=== PATIENT | male | born 1990 | race Caucasian/White ===

== ENCOUNTER 2017-04-15 22:57 | Emergency (ER) | payer BC ==
[~2017-04-15] VITALS: Ht 182.9 cm; Wt 138.6 kg
[2017-04-15] MEDS ORDERED: ZYRT10CA PO (23:12)
[2017-04-15] MEDS ORDERED: METH36TA (23:12)
[2017-04-16 01:29] LABS: BASO % 1.3 % (0.0-1.0); EOS % 1.5 % (0.0-3.0); LARGE UNSTAINED CELL % 1.8 % (0.0-4.0); LYMPH % 18.8 % (24.0-44.0); MEAN CORPUSCULAR HGB CONC 35.8 g/dl (32.0-36.5); MEAN CORPUSCULAR VOLUME 86.5 fl (80.0-96.0); MONO % 6.3 % (0.0-5.0); NEUTROPHILS % 70.3 % (36.0-66.0); PLATELET COUNT, AUTOMATED 352 k/mm3 (150-450); RED CELL DISTRIBUTION WIDTH 12.8 % (11.5-14.5); WHITE BLOOD COUNT 7.3 K/mm3 (4.0-10.0)
[2017-04-16 01:30] LABS: BASO # 0.1 K/mm3 (0.0-0.2); EOS # 0.1 K/mm3 (0.0-0.50); LARGE UNSTAINED CELL # 0.1 K/mm3 (0.0-0.4); LYMPH # 1.4 K/mm3 (1.5-6.5); MONO # 0.5 K/mm3 (0.0-0.8); NEUTROPHILS # 5.1 K/mm3 (1.8-7.7)
[2017-04-16 01:44] LABS: ANION GAP 9 MEQ/L (8-16); BLOOD UREA NITROGEN 17 MG/DL (7-18); CALCIUM LEVEL 9.8 MG/DL (8.5-10.1); CARBON DIOXIDE LEVEL 26 MEQ/L (21-32); CHLORIDE LEVEL 104 MEQ/L (98-107); CREATININE FOR GFR 1.09 MG/DL (0.70-1.30); GLOMERULAR FILTRATION RATE > 60.0 (>60); GLUCOSE, FASTING 127 MG/DL (70-105); POTASSIUM SERUM 3.9 MEQ/L (3.5-5.1); SODIUM LEVEL 139 MEQ/L (136-145)
[2017-04-16 02:00] VITALS: BP 144/89
--- NOTE | 2017-04-16 08:26 | ECGEPIP ---
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
--- NOTE | 2017-04-22 15:34 | REP ---
Clinical: Chest pain. Technique: PA and lateral. Comparison: None. Findings: Mediastinum and cardiac silhouette are normal. No focal consolidation, effusion, or pneumothorax. Skeletal structures intact. Impression: No obvious acute cardiopulmonary process. Signed by Thony Thompson MD 04/16/2017 07:09 A
== END 2017-04-16 02:05 | disposition home or self-care (01) ==
LOC: M ED 22:57
DX: R07.89 Other chest pain (principal); F90.9 Attention-deficit hyperactivity disorder, unspecified type; Z79.899 Other long term (current) drug therapy

== ENCOUNTER → 2020-09-12 | Outpatient (CLI) | payer BC ==
[~2020-09-12] MED LIST: METH36TA5; ZYRT10CA PO
--- NOTE | 2020-09-12 08:46 | REP ---
INDICATION: F/U RIGHT SHOULDER. COMPARISON: None. TECHNIQUE: Internal rotation, external rotation, and Y-view of the right shoulder. FINDINGS: Mild cortical irregularity at the distal clavicle likely representing degenerative change and less likely acute injury/nondisplaced fracture. The acromioclavicular joint itself appears intact. The glenohumeral joint is normal. Subacromial space measures 10 mm. No periarticular calcifications or loose bodies are identified. Surrounding soft tissues normal. IMPRESSION: Presumed mild degenerative changes at the acromioclavicular joint. <Electronically signed by Thony Thompson > 09/12/20 [id number]
== END ==
LOC: M SOG 08:15
PROVIDERS: ATTEND Orthopaedic Surgery Sports Medicine
DX: M75.41 Impingement syndrome of right shoulder (principal)

== ENCOUNTER 2021-02-07 20:41 | Emergency (ER) | payer BC ==
[~2021-02-07] VITALS: Ht 182.9 cm; Wt 147.7 kg
[2021-02-07] MEDS ORDERED: ACET-841 PO (20:51)
[2021-02-07] MEDS ORDERED: MORPHINE 2 MG/ML 1ML VIAL (J2270) IV PRN (21:05)
[2021-02-07] MEDS ORDERED: NS 1,000 ML IV ONE (21:05)
[2021-02-07 21:26] LABS: BASO # 0.1 10^3/uL (0.0-0.2); BASO % 0.6 % (0.0-1.0); EOS # 0.1 10^3/uL (0.0-0.5); EOS % 1.5 % (0.0-3.0); HEMATOCRIT 46.1 % (42.0-52.0); HEMOGLOBIN 15.9 g/dl (13.5-17.5); LYMPH # 1.6 10^3/uL (1.5-5.0); MEAN CORPUSCULAR HEMOGLOBIN 30.3 pg (27.0-33.0); MEAN CORPUSCULAR HGB CONC 34.5 g/dl (32.0-36.5); MONO # 0.9 10^3/uL (0.0-0.8); MONO % 9.6 % (2.0-8.0); NEUTROPHILS # 6.8 10^3/uL (1.5-8.5); PLATELET COUNT, AUTOMATED 361 10^3/uL (150-450); RED BLOOD COUNT 5.24 10^6/uL (4.30-6.10); WHITE BLOOD COUNT 9.5 10^3/uL (4.0-10.0)
[2021-02-07 21:48] LABS: ALBUMIN 4.8 GM/DL (3.2-5.2); ALT/SGPT 47 U/L (12-78); BILIRUBIN,DIRECT 0.1 MG/DL (0.0-0.2); BILIRUBIN,TOTAL 0.5 MG/DL (0.2-1.0); BLOOD UREA NITROGEN 21 MG/DL (7-18); CALCIUM LEVEL 9.3 MG/DL (8.5-10.1); CARBON DIOXIDE LEVEL 29 MEQ/L (21-32); CHLORIDE LEVEL 105 MEQ/L (98-107); CREATININE FOR GFR 1.15 MG/DL (0.70-1.30); GLOMERULAR FILTRATION RATE > 60.0 (>60); GLUCOSE, FASTING 107 MG/DL (70-100); POTASSIUM SERUM 3.6 MEQ/L (3.5-5.1); SODIUM LEVEL 139 MEQ/L (136-145); TOTAL PROTEIN 7.9 GM/DL (6.4-8.2)
[2021-02-07 22:27] LABS: CK-MB VALUE MASS < 1.0 NG/ML (<3.6); CPK CREATINE PHOSPHOKINASE 138 U/L (39-308); MB/CK RELATIVE INDEX 0.72 (< OR =4); TROPONIN I < 0.02 NG/ML (< 0.10)
--- NOTE | 2021-02-07 22:57 | REPVR ---
PROCEDURE INFORMATION: Exam: XR Chest Exam date and time: 02/07/2021 10:22 PM Age: 31 years old Clinical indication: Other: Hypertension TECHNIQUE: Imaging protocol: XR of the chest. Views: 2 views. COMPARISON: CR Chest, 2 view PA, Lat 04/16/2017 12:37 AM FINDINGS: Lungs: There are no interval infiltrates. Pleural spaces: Unremarkable. No pleural effusion. No pneumothorax. Heart/Mediastinum: The heart and mediastinum are unchanged. Bones/joints: Unremarkable. Soft tissues: There are moderately generous overlying soft tissues. IMPRESSION: Stable negative chest since 04/16/2017. Electronically signed by: Lopez Oakes On 02/07/2021 22:56:45 PM
--- NOTE | 2021-02-07 23:07 | REPVR ---
PROCEDURE INFORMATION: Exam: CT Head Without Contrast Exam date and time: 02/07/2021 10:29 PM Age: 31 years old Clinical indication: Pain; Headache; Additional info: Headache hypertension TECHNIQUE: Imaging protocol: Computed tomography of the head without contrast. Radiation optimization: All CT scans at this facility use at least one of these dose optimization techniques: automated exposure control; mA and/or kV adjustment per patient size (includes targeted exams where dose is matched to clinical indication); or iterative reconstruction. COMPARISON: No relevant prior studies available. FINDINGS: Brain: The alegria and white matter is normal. The peripheral sulci are normal. Cerebral ventricles: No ventriculomegaly. Paranasal sinuses: Minimal ethmoid, sphenoid and left maxillary sinus mucosal thickening. Mastoid air cells: Visualized mastoid air cells are well aerated. Vasculature: There is a large vein with increased attenuation with a Hounsfield measurement of 52 which extends from the right parieto-occipital region and suggests a large draining vein of uncertain etiology. The attenuation is not high enough to account for a thrombosed vein and is likely patent but is large and unusual in location. Bones/joints: Unremarkable. No acute fracture. Soft tissues: Unremarkable. IMPRESSION: 1. Large draining vein extending from the substance of the right parieto-occipital region which may be reflection of a vascular malformation. MR may be of benefit for further evaluation. 2. Minimal ethmoid, sphenoid and left maxillary sinus disease. 3. Otherwise negative noncontrast head CT. Electronically signed by: Lopez Oakes On 02/07/2021 23:07:01 PM
[2021-02-08 00:28] VITALS: BP 144/90
--- NOTE | 2021-02-08 20:45 | ECGEPIP ---
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
--- NOTE | 2021-02-11 11:36 | ED PDOC ---
Post-Departure Follow-Up radiology report faxed to Sarah Mccoy MD Feb 11, 2021 11:36
== END 2021-02-08 00:31 | disposition home or self-care (01) ==
LOC: M ED 20:41
DX: I10 Essential (primary) hypertension (principal); M25.512 Pain in left shoulder

== ENCOUNTER 2021-02-20 00:28 | Emergency (ER) | payer BC ==
[~2021-02-20] VITALS: Ht 182.9 cm; Wt 147.9 kg
[~2021-02-20 00:28] MED LIST changes: +ACET-841 PO
[2021-02-20] MEDS ORDERED: VITMTA PO (00:59)
[2021-02-20] MEDS ORDERED: LISI10TA15 PO (00:59)
[2021-02-20 01:44] LABS: BASO # 0.1 10^3/uL (0.0-0.2); BASO % 0.7 % (0.0-1.0); EOS # 0.2 10^3/uL (0.0-0.5); EOS % 1.9 % (0.0-3.0); HEMATOCRIT 44.4 % (42.0-52.0); HEMOGLOBIN 15.6 g/dl (13.5-17.5); LYMPH # 1.3 10^3/uL (1.5-5.0); LYMPH % 15.7 % (24.0-44.0); MEAN CORPUSCULAR HEMOGLOBIN 30.6 pg (27.0-33.0); MEAN CORPUSCULAR HGB CONC 35.1 g/dl (32.0-36.5); MEAN CORPUSCULAR VOLUME 87.1 fl (80.0-96.0); MONO # 0.9 10^3/uL (0.0-0.8); MONO % 9.9 % (2.0-8.0); NEUTROPHILS # 6.1 10^3/uL (1.5-8.5); NEUTROPHILS % 71.4 % (36.0-66.0); PLATELET COUNT, AUTOMATED 352 10^3/uL (150-450); WHITE BLOOD COUNT 8.6 10^3/uL (4.0-10.0)
--- NOTE | 2021-02-20 02:08 | REPVR ---
PROCEDURE INFORMATION: Exam: XR Chest Exam date and time: 02/20/2021 1:07 AM Age: 31 years old Clinical indication: Other: Cp; Additional info: Chest pain TECHNIQUE: Imaging protocol: XR of the chest. Views: 1 view. COMPARISON: CR Chest, 2 view PA, Lat 02/07/2021 10:07 PM FINDINGS: Lungs: There are no interval infiltrates. Pleural spaces: Unremarkable. No pleural effusion. No pneumothorax. Heart/Mediastinum: The heart and mediastinum are unchanged. Bones/joints: Unremarkable. Soft tissues: There are moderately generous overlying soft tissues. IMPRESSION: Stable chest since 02/07/2021. No acute interval process is identified. Electronically signed by: Lopez Oakes On 02/20/2021 02:08:02 AM
[2021-02-20 02:40] LABS: BLOOD UREA NITROGEN 19 MG/DL (7-18); CALCIUM LEVEL 8.9 MG/DL (8.5-10.1); CARBON DIOXIDE LEVEL 27 MEQ/L (21-32); CHLORIDE LEVEL 106 MEQ/L (98-107); CK-MB VALUE MASS < 1.0 NG/ML (<3.6); CPK CREATINE PHOSPHOKINASE 171 U/L (39-308); CREATININE FOR GFR 1.11 MG/DL (0.70-1.30); GLOMERULAR FILTRATION RATE > 60.0 (>60); GLUCOSE, FASTING 112 MG/DL (70-100); MB/CK RELATIVE INDEX 0.58 (< OR =4); POTASSIUM SERUM 4.1 MEQ/L (3.5-5.1); SODIUM LEVEL 139 MEQ/L (136-145); TROPONIN I < 0.02 NG/ML (< 0.10)
[2021-02-20 03:45] VITALS: BP 147/80
--- NOTE | 2021-02-21 16:29 | ECGEPIP ---
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
== END 2021-02-20 04:05 | disposition home or self-care (01) ==
LOC: M ED 00:28
DX: R00.2 Palpitations (principal); R00.0 Tachycardia, unspecified; I10 Essential (primary) hypertension; E66.9 Obesity, unspecified; Z79.899 Other long term (current) drug therapy

== ENCOUNTER → 2021-02-21 | Outpatient (CLI) | payer BC ==
[~2021-02-21] MED LIST changes: +LISI10TA15 PO; +PROHANCE 279.3MG/ML 15ML VIAL ONE; +VITMTA PO
--- NOTE | 2021-02-21 10:20 | REP ---
INDICATION: STALLWORTH. 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 MRI recommended. COMPARISON: Comparison head CT study February 07, 2021.. TECHNIQUE: 3-D [id number] MR angiography of the brain is acquired in the usual fashion and maximal intensity projection images were generated in rotational format about the vertical and horizontal axes. In addition, source axial T1-weighted images are viewed in cine mode. FINDINGS: The distal vertebral arteries are patent and co-dominant. Basilar artery is a little tortuous but widely patent. The posterior cerebral and superior cerebellar vessels are normal and symmetric. The distal internal carotid arteries are unremarkable. Anterior and middle cerebral arteries appear intact. There is no visible calle aneurysm or arteriovenous malformation. The right A1 segment is hypoplastic. The anterior communicator is patent and is bilateral anterior cerebral arteries are fed from the left A1 segment. On source images, the anomalous draining vein seen on the CT study is again noted coursing through through the right occipital cortex from the periventricular region of the right occipital lobe the vein can be seen approaching the posterior aspect of the sagittal sinus although I cannot see it merging with the sagittal sinus. This is consistent with a developmental venous anomaly. IMPRESSION: 1. 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 Otherwise normal [id number] arteries and arterial anatomy. There is no evidence of calle aneurysm or arterial anomaly. 2. There is evidence of a developmental venous anomaly incidentally in the right occipital lobe as seen on recent CT study. . <Electronically signed by Wojciech Brito > 02/21/21 [id number]
--- NOTE | 2021-02-21 10:26 | REP ---
INDICATION: STALLWORTH W/ ABN IMAG CT ? AVM. COMPARISON: Comparison CT study February 07, 2021 showed an anomalous vein in the right occipital lobe.. TECHNIQUE: Axial and sagittal imaging planes are utilized for T1 and T2-weighted scans. Sequences include spin-echo, fast spin echo, FLAIR, and diffusion weighted sequences. Post gadolinium enhanced imaging is acquired in axial and coronal projections following the intravenous injection of 29 mL of ProHance. FINDINGS: No bony calvarial lesion is seen. Craniocervical junction upper cervical cord are unremarkable. There is mucosal thickening and fluid filling the left maxillary sinus. Mild mucosal changes are seen in the ethmoid air cells bilaterally. The deep facial soft tissues are unremarkable. No intraorbital abnormality is seen. There is no evidence of intracranial hemorrhage. Pre and postcontrast images demonstrate the anomalous vein draining from the periventricular white matter of the right posterior temporal occipital region to the posterior midline extending into a prominent cortical draining vein. Ultimately, this appears to join the posterior aspect of the sagittal dural sinus. Postcontrast images demonstrate fan-shaped area of enhancement representing the developmental venous anomaly in the right occipital lobe periventricular white matter. This corresponds with the CT findings. There is no evidence of hemosiderin staining in the region [place]-white differentiation pattern is otherwise intact. No other vascular finding. No mass or infarct is seen. Diffusion-weighted scans show no evidence of restricted diffusion. No other abnormal contrast enhancement is appreciated. IMPRESSION: A right occipital lobe developmental venous anomaly is observed corresponding with the recent CT findings. There is no evidence of current or previous hemorrhage. Otherwise negative MRI study of the brain. <Electronically signed by Wojciech Brito > 02/21/21 1021
== END ==
LOC: M PLAIMG 07:45
PROVIDERS: ATTEND Physician Assistant Medical
DX: R51.9 Headache, unspecified (principal); R93.0 Abnormal findings on diagnostic imaging of skull and head, not elsewhere classified
CPT/HCPCS: 70544; 70553; A9576

== ENCOUNTER → 2021-07-07 | Outpatient (CLI) | payer BC ==
[~2021-07-07] MED LIST changes: -PROHANCE 279.3MG/ML 15ML VIAL ONE
[2021-07-07 10:58] LABS: BASO # 0.1 10^3/uL (0.0-0.2); BASO % 1.3 % (0.0-1.0); EOS # 0.2 10^3/uL (0.0-0.5); EOS % 2.9 % (0.0-3.0); HEMATOCRIT 44.9 % (42.0-52.0); HEMOGLOBIN 15.4 g/dl (13.5-17.5); LYMPH # 1.4 10^3/uL (1.5-5.0); LYMPH % 24.4 % (24.0-44.0); MEAN CORPUSCULAR HEMOGLOBIN 30.6 pg (27.0-33.0); MEAN CORPUSCULAR HGB CONC 34.3 g/dl (32.0-36.5); MEAN CORPUSCULAR VOLUME 89.3 fl (80.0-96.0); MONO # 0.5 10^3/uL (0.0-0.8); MONO % 9.7 % (2.0-8.0); NEUTROPHILS # 3.4 10^3/uL (1.5-8.5); NEUTROPHILS % 61.5 % (36.0-66.0); PLATELET COUNT, AUTOMATED 365 10^3/uL (150-450); RED BLOOD COUNT 5.03 10^6/uL (4.30-6.10); WHITE BLOOD COUNT 5.5 10^3/uL (4.0-10.0)
[2021-07-07 11:09] LABS: INR 1.02; PROTHROMBIN TIME 13.8 SECONDS (12.7-14.5)
[2021-07-07 11:33] LABS: ALBUMIN 4.5 GM/DL (3.2-5.2); ALT/SGPT 43 U/L (12-78); BILIRUBIN,TOTAL 0.6 MG/DL (0.2-1.0); BLOOD UREA NITROGEN 19 MG/DL (7-18); CALCIUM LEVEL 9.9 MG/DL (8.5-10.1); CARBON DIOXIDE LEVEL 30 MEQ/L (21-32); CHLORIDE LEVEL 105 MEQ/L (98-107); CREATININE FOR GFR 1.04 MG/DL (0.70-1.30); GLOMERULAR FILTRATION RATE > 60.0 (>60); GLUCOSE, FASTING 104 MG/DL (70-100); POTASSIUM SERUM 3.9 MEQ/L (3.5-5.1); SODIUM LEVEL 141 MEQ/L (136-145); TOTAL PROTEIN 7.6 GM/DL (6.4-8.2)
== END ==
LOC: M PLALAB 07:13
PROVIDERS: ATTEND Physician Assistant Medical
DX: Z01.818 Encounter for other preprocedural examination (principal); I99.9 Unspecified disorder of circulatory system

== ENCOUNTER → 2021-10-07 | Outpatient (CLI) | payer BC ==
[~2021-10-07] MED LIST changes: -LISI10TA15 PO; +LISI10TA24 PO
== END ==
LOC: M PLAIMG 15:01
PROVIDERS: ATTEND Orthopaedic Surgery Sports Medicine
DX: M75.41 Impingement syndrome of right shoulder (principal)

== ENCOUNTER → 2023-07-12 | Outpatient (CLI) | payer BC | LOC: M SOG 07:57 | PROVIDERS: ATTEND Physician Assistant | DX: M79.644 Pain in right finger(s) (principal) ==

== ENCOUNTER → 2023-07-23 | Outpatient (CLI) | payer BC ==
[~2023-07-23] MED LIST changes: +PROHANCE 279.3MG/ML 15ML VIAL ONE; +PROHANCE 279.3MG/ML 5ML VIAL ONE
== END ==
LOC: M PLAIMG 07:59
PROVIDERS: ATTEND Internal Medicine
DX: D35.4 Benign neoplasm of pineal gland (principal)
CPT/HCPCS: 70553; A9576

== ENCOUNTER → 2024-02-21 | Outpatient (CLI) | payer BC ==
[~2024-02-21] MED LIST changes: -PROHANCE 279.3MG/ML 15ML VIAL ONE; -PROHANCE 279.3MG/ML 5ML VIAL ONE
== END ==
LOC: M RAD 15:59
PROVIDERS: ATTEND Otolaryngology
DX: J32.0 Chronic maxillary sinusitis (principal)

== ENCOUNTER → 2024-09-28 | Outpatient (CLI) | payer BC ==
[~2024-09-28] MED LIST changes: +AMLO1TAB24 PO; +AZEL1SPR3; +FLON1SPR; +LISI20TA35 PO; -METH36TA5; +METH36TA5 PO; +THERTAB52 PO; +ZYRT10TA12 PO
== END ==
LOC: M SLEEP HO 11:18
PROVIDERS: ATTEND Physician Assistant
DX: G47.33 Obstructive sleep apnea (adult) (pediatric) (principal)

== ENCOUNTER 2024-10-17 07:34 | Day surgery (SDC) | payer BC ==
[~2024-10-17] VITALS: Ht 185.4 cm; Wt 152.4 kg
[~2024-10-17 07:34] MED LIST changes: +LIDOCAINE 2% 100MG/5ML SDV (FOR ANES.) As Ordered ONE; +MIDAZOLAM INJ 2MG/2ML VIAL As Ordered ONE; +ROCURONIUM BROMIDE 50MG/5ML VIAL As Ordered ONE; +fentaNYL 250 MCG/5 ML INJECTION As Ordered ONE; +propofoL 200 MG/20 ML VIAL As Ordered ONE
[2024-10-17] MEDS ORDERED: LR 1,000 ML IV SCH ×2 (08:10→12:55)
[2024-10-17] MEDS: EPINEPHrine 1MG/ML INJ 30ML MD-VIAL As Ordered ONE (10:06)
[2024-10-17] MEDS: SODIUM CHLORIDE 0.9% NASAL GEL 15GM (AYR) As Ordered ONE (10:06)
[2024-10-17] MEDS: PHENYLEPHRINE REG/STR 0.5% NASAL SPRAY 15 ML As Ordered ONE (10:06)
[2024-10-17] MEDS: METHYLENE BLUE 0.5% (5MG/ML) 10 ML AMP (PROVAYBLUE) As Ordered ONE (10:06)
[2024-10-17] MEDS ORDERED: ePHEDrine SULFATE 25 MG/5 ML(5MG/ML) SYRINGE As Ordered ONE (10:09)
[2024-10-17] MEDS ORDERED: LACRILUBE (AKWA TEARS) OPHTH OINT 3.5GM As Ordered ONE (10:11)
[2024-10-17] MEDS: LIDOCAINE W/EPINEPHRINE 1% 20ML VIAL As Ordered ONE (10:15)
[2024-10-17] MEDS ORDERED: ONDANSETRON 4MG 2ML VIAL As Ordered ONE (10:37)
[2024-10-17] MEDS ORDERED: ACETAMINOPHEN 1000MG/100ML IV BAG As Ordered ONE (10:37)
[2024-10-17] MEDS ORDERED: KETOROLAC 60MG 2ML VIAL As Ordered ONE (10:37)
[2024-10-17] MEDS ORDERED: METOCLOPRAMIDE INJ 10MG/2ML VIAL As Ordered ONE (10:39)
[2024-10-17] MEDS ORDERED: LABETALOL 100MG/20ML VIAL As Ordered ONE (11:15)
[2024-10-17] MEDS ORDERED: SUGAMMADEX SODIUM 500 MG/5 ML VIAL (BRIDION) As Ordered ONE (11:17)
[2024-10-17] MEDS ORDERED: ONDANSETRON 4MG 2ML VIAL IV PRN (12:55)
[2024-10-17] MEDS ORDERED: HYDROMORPHONE HCL 0.5 MG/ 0.5 ML SYRINGE IV PRN (12:55)
[2024-10-17] MEDS ORDERED: fentaNYL 100 MCG/2 ML INJECTION IV PRN (12:55)
[2024-10-17] MEDS: oxyCODONE 5MG TAB PO PRN (14:18)
[2024-10-17 14:55] VITALS: BP 141/83; TEMP 97.7; O2SAT 98
== END 2024-10-17 15:08 | disposition home or self-care (01) ==
LOC: M SDC 07:34
PROVIDERS: ATTEND Otolaryngology
DX: J31.0 Chronic rhinitis (principal); J34.2 Deviated nasal septum; J32.0 Chronic maxillary sinusitis; J32.2 Chronic ethmoidal sinusitis; I10 Essential (primary) hypertension; E78.5 Hyperlipidemia, unspecified; K76.0 Fatty (change of) liver, not elsewhere classified; F90.9 Attention-deficit hyperactivity disorder, unspecified type; J45.909 Unspecified asthma, uncomplicated; F17.220 Nicotine dependence, chewing tobacco, uncomplicated; Z79.899 Other long term (current) drug therapy
CPT/HCPCS: 30520; 31255; 31267; 88300; C2625; J0131; J0171; J1100; J1885; J1920; J2250; J2405; J2765; J3010; Q9968

== ENCOUNTER → 2024-11-29 | Outpatient (REF) | payer BC ==
[~2024-11-29] MED LIST changes: -LIDOCAINE 2% 100MG/5ML SDV (FOR ANES.) As Ordered ONE; -MIDAZOLAM INJ 2MG/2ML VIAL As Ordered ONE; -ROCURONIUM BROMIDE 50MG/5ML VIAL As Ordered ONE; -fentaNYL 250 MCG/5 ML INJECTION As Ordered ONE; -propofoL 200 MG/20 ML VIAL As Ordered ONE
== END ==
LOC: M LAB REF 11:59
PROVIDERS: ATTEND Internal Medicine
DX: R20.2 Paresthesia of skin (principal)

== ENCOUNTER → 2025-06-28 | Outpatient (CLI) | payer BC ==
[~2025-06-28] MED LIST changes: +METH36TA13 PO; -METH36TA5 PO
== END ==
LOC: M SLEEP 20:00
PROVIDERS: ATTEND Physician Assistant
DX: G47.33 Obstructive sleep apnea (adult) (pediatric) (principal)